=== PATIENT | female | born 1945 | race Caucasian/White ===

== ENCOUNTER → 2023-06-30 08:05 | Outpatient (REF) | payer MEDICARE, OTHER, SELFPAY | LOC: CLAB 08:05 | PROVIDERS: ATTENDING PHYSICIAN Obstetrics & Gynecology | DX: N39.0 Urinary tract infection, site not specified (principal) | CPT/HCPCS: 87086 ==

== ENCOUNTER → 2023-07-11 13:01 | Outpatient (REF) | payer MEDICARE, OTHER, SELFPAY ==
[2023-07-11 13:46] LABS: % Basophils 0.9 % (0-2); % Eosinophils 3.2 % (0-6); % Immature Granulocytes 0.4 % (0-0.5); % Lymphocytes 23.5 % (20.5-51.1); % Monocytes 9.8 % (1.7-9.3); % Neutrophils 62.2 % (42.2-75.2); Absolute Basophils 0.1 10^3/uL (0-0.2); Absolute Eosinophils 0.2 10^3/uL (0-0.7); Absolute Lymphocytes 1.3 10^3/uL (1.2-3.4); Absolute Monocytes 0.6 10^3/uL (0.1-0.6); Absolute Neutrophils 3.5 10^3/uL (1.4-6.5); Hematocrit 40.8 % (37.0-47.0); Hemoglobin 13.8 g/dL (12.0-16.0); Mean Corp Hgb Conc. 33.8 g/dL (33.0-37.0); Mean Corpuscular Hgb 32.2 pg (27.0-31.0); Mean Corpuscular Volume 95.1 fL (81.0-99.0); Mean Platelet Volume 9.5 fL (7.4-10.4); Nucleated Red Blood Cells % 0 %; Platelet Count 250 10^3/uL (130-400); Red Blood Cell Count 4.29 10^6/uL (4.20-5.40); Red Cell Dist. Width 12.7 % (11.5-14.5); White Blood Cell Count 5.6 10^3/uL (4.8-10.8)
[2023-07-11 14:18] LABS: ALT (SGPT) 21 U/L (0-35); AST (SGOT) 24 U/L (14-36); Albumin 4.3 g/dl (3.5-5.0); Alkaline Phosphatase 73 U/L (38-126); Blood Urea Nitrogen 20 mg/dl (7-17); Calcium 9.9 mg/dl (8.4-10.2); Carbon Dioxide 26 mmol/L (22-30); Chloride 104 mmol/L (98-107); Glucose 95 mg/dl (70-99); HDL Cholesterol 66 mg/dl; LDL Cholesterol, Calculated 88 mg/dl; Potassium 4.7 mmol/L (3.5-5.1); Sodium 140 mmol/L (135-145); Total Bilirubin 0.6 mg/dl (0.2-1.3); Total Cholesterol 183 mg/dl (50-199); Total Protein 7.1 g/dl (6.3-8.2); Triglyceride 149 mg/dl (10-149); Very Low Density Lipoprotein 29 mg/dl (0-30); eGFR 56.95
[2023-07-11 14:32] LABS: Urine Albumin Trace (Neg - Trace); Urine Bilirubin Negative (Negative); Urine Character Slightly Cloudy (Clear); Urine Glucose Negative (Negative); Urine Ketone Negative (Negative); Urine Leukocyte Trace (Negative); Urine Nitrite Negative (Negative); Urine Occult Blood Negative (Negative); Urine Urobilinogen Negative (Neg - 1+)
[2023-07-11 14:33] LABS: Urine Color Yellow
[2023-07-11 14:41] LABS: Urine Squamous Cell >30 /LPF (Few)
[2023-07-11 14:42] LABS: Urine Bacteria Few (Negative); Urine Red Blood Cell 0-2 /HPF (0-2); Urine White Cell 0-2 /HPF (0-5)
[2023-07-11 14:48] LABS: TSH 4.98 uIU/ml (0.47-4.68)
== END ==
LOC: REG 13:01
PROVIDERS: ATTENDING PHYSICIAN Internal Medicine
DX: I10 Essential (primary) hypertension (principal); H81.13 Benign paroxysmal vertigo, bilateral; Z86.73 Personal history of transient ischemic attack (TIA), and cerebral infarction without residual deficits; E78.2 Mixed hyperlipidemia; Z86.018 Personal history of other benign neoplasm; F33.41 Major depressive disorder, recurrent, in partial remission; Z12.31 Encounter for screening mammogram for malignant neoplasm of breast; Z00.01 Encounter for general adult medical examination with abnormal findings
CPT/HCPCS: 36415; 80053; 80061; 81003; 81015; 84443; 85025

== ENCOUNTER → 2023-08-22 12:00 | Outpatient (REF) | payer MEDICARE, OTHER, SELFPAY ==
[2023-08-24 02:57] LABS: SSA 52 (Ro)(ENA) Ab, IgG 17 AU/mL (0-40); SSA 60 (Ro)(ENA) Ab, IgG 0 AU/mL (0-40); SSB (La)(ENA) Ab, IgG 0 AU/mL (0-40)
== END ==
LOC: REG 12:00
PROVIDERS: ATTENDING PHYSICIAN Internal Medicine; FAMILY PHYSICIAN Internal Medicine
DX: K11.7 Disturbances of salivary secretion (principal)
CPT/HCPCS: 36415; 86235

== ENCOUNTER → 2023-09-12 09:17 | Outpatient (REF) | payer MEDICARE, OTHER, SELFPAY ==
[2023-09-12 10:57] LABS: Blood Urea Nitrogen 17 mg/dl (7-17); Calcium 9.8 mg/dl (8.4-10.2); Carbon Dioxide 25 mmol/L (22-30); Chloride 99 mmol/L (98-107); Glucose 99 mg/dl (70-99); Potassium 4.2 mmol/L (3.5-5.1); Sodium 134 mmol/L (135-145); eGFR 56.95
[2023-09-12 13:14] LABS: Hematocrit 39.5 % (37.0-47.0); Mean Corp Hgb Conc. 35.4 g/dL (33.0-37.0); Mean Corpuscular Hgb 33.3 pg (27.0-31.0); Mean Corpuscular Volume 93.8 fL (81.0-99.0); Mean Platelet Volume 10.2 fL (7.4-10.4); Platelet Count 233 10^3/uL (130-400); Red Blood Cell Count 4.21 10^6/uL (4.20-5.40); Red Cell Dist. Width 12.5 % (11.5-14.5); White Blood Cell Count 5.4 10^3/uL (4.8-10.8)
== END ==
LOC: SDSPAT 09:17
PROVIDERS: ATTENDING PHYSICIAN Obstetrics & Gynecology; FAMILY PHYSICIAN Internal Medicine
DX: Z01.818 Encounter for other preprocedural examination (principal)
CPT/HCPCS: 36415; 80048; 85027; 86850; 86900; 86901; 93005

== ENCOUNTER 2023-09-19 09:36 | Day surgery (SDC) | payer MEDICARE, OTHER, SELFPAY ==
[2023-09-12 13:51] VITALS: BMI 25.9
[2023-09-19] VITALS (11 sets, daily range): BP systolic 133–159; BP diastolic 55–82; BMI 25.9
[2023-09-19] MEDS: NORMOSOL-R 1000 IV (13:02)
[2023-09-19] MEDS: Pyridium 200 MG PO (13:02)
[2023-09-19] MEDS: HEPARIN 5000 UNITS SC (13:03)
== END 2023-09-19 19:40 | disposition home or self-care (01) ==
LOC: SDS 09:36
PROVIDERS: ATTENDING PHYSICIAN Obstetrics & Gynecology
DX: N99.3 Prolapse of vaginal vault after hysterectomy (principal); N39.3 Stress incontinence (female) (male); N36.41 Hypermobility of urethra; Y83.8 Other surgical procedures as the cause of abnormal reaction of the patient, or of later complication, without mention of misadventure at the time of the procedure
CPT/HCPCS: 57282; 57260; J1580

== ENCOUNTER 2024-01-08 09:59 | Emergency (ER) | payer MEDICARE, OTHER, SELFPAY ==
[2024-01-08 10:02] VITALS: BP 178/75
[2024-01-08 10:14] VITALS: BMI 25.0
[2024-01-08] MEDS: ULTRAM 25 MG PO (11:36)
--- NOTE | 2024-01-08 12:41 | ED.GENMED ---
History of Present Illness
General
Chief Complaint: Swelling
Source: patient and family
Exam Limitations: none
Time Seen by Provider: 01/08/24 10:49
Nursing documentation reviewed up to this point in time: agreed with
History of Present Illness
History of Present Illness:
Patient presents to ED secondary to persistent right knee pain with swelling, when she stood up from sitting on the couch last night. Denies fever. Denies direct trauma. Denies fall from pain. Denies loss of sensation or weakness. Denies
previous history of similar symptoms. Denies recent change in activities. Denies recent travel or surgery. Denies family history or previous history of blood clots. Of note, however, per family, patient has been less active recently.
Past History
Past History
ED Past Medical History: HTN, Hypercholesterolemia and Other (TIA, ischemic colitis)
ED Past Surgical History: Other (Hysterectomy)
Social History
Tobacco: Non-smoker
Alcohol: None
Drug: None
Employment: Retired
Family History
Family History: Other (n/c)
Review of Systems
Review of Systems
Allergies reviewed?: Yes
All Other Systems: ROS reviewed and negative except as documented in HPI and ROS
Constitutional: Reports no symptoms
Musculoskeletal: Reports joint pain and joint swelling
Skin: Reports no symptoms
Neurological: Reports no symptoms; Denies weakness
Phy Exam
Physical Exam
Physical Exam:
Physical Exam
General: mild painful distress, not acutely ill. afebrile
Head: nc/at. eomi
Neck: supple. normal range of motion
Neuro: alert and oriented. no focal neurological deficits
Skin: no rash
Psychiatric: well kept. interactive and cooperative
Extremities: right knee: mild tenderness w minimal swelling noted over right prox fib/medial knee, without ecchymosis/erythema/warmth. No calf tenderness/swelling.
Scores
Heart Failure Risk
Heart Failure Risk Score: Not Applicable
Course
Orders/Labs/Results
Orders:
Orders
01/08/24 10:11
Venous Doppler Lwr Ext Rt [US Periph Venous LOWER Ext RT] Urgent
Comment:
Reason For Exam: swelling/pain, r/o DVT
01/08/24 11:33
Tramadol HCl [Ultram] 25 mg PO NOW STA
01/08/24 11:51
CR Knee- Right 4 Or More View* Urgent
Comment:
Reason For Exam: pain w swelling
Vital Signs
Initial and Last Documented VS:
Initial Vital Signs
Temp Pulse Resp BP Pulse Ox
98.3 F 65 16 178/75 97
01/08/24 10:02 01/08/24 10:02 01/08/24 10:02 01/08/24 10:02 01/08/24 10:02
Last Documented Vital Signs
Temp Pulse Resp BP Pulse Ox
98.3 F 66 16 182/71 97
01/08/24 10:02 01/08/24 12:48 01/08/24 10:02 01/08/24 12:48 01/08/24 10:02
MDM/Problems Addressed
MDM/Problems Addressed:
Ultrasound lower extremity and knee x-ray report reviewed and discussed with patient and family.
History and exam consistent with likely mild right knee strain with associated pain and minimal swelling. Otherwise patient is neurovascularly intact. Patient will be treated conservatively with knee immobilizer along with recommendation to use
walker for safety at home, until reevaluation with her orthopedic surgeon.
*Critical Care Note
Total Time (30-74mins, 75-104mins- exclusive of procedures): Not Applicable
ED Attending Note
-
Portions of this chart may have been created with voice recognition software.� Occasional wrong word or��sound alike� substitutions may have occurred due to the inherent limitations of voice recognition software.
Discharge Plan
Departure
Patient Disposition: Home (Routine Discharge)
Date of Disposition: 01/08/24
Time of Disposition: 12:41
Patient with high blood pressure during this ER visit?: Yes
Condition: Fair
Discharge Problem:
Knee pain
Instructions: Knee Pain ED
Prescriptions:
No Action
bupropion HCl 150 MG tablet sustained-release 12 hr
200 mg PO BID
pravastatin 20 MG tablet
20 mg PO DAILY
meclizine 12.5 MG tablet
12.5 mg PO TIDPRN PRN (Reason: dizziness)
hydrochlorothiazide 12.5 MG tablet
12.5 mg PO DAILY
aspirin 81 MG tablet,chewable
81 mg PO DAILY Qty: 30 0RF
pantoprazole 40 MG tablet,delayed release (DR/EC)
40 mg PO DAILY Qty: 30 0RF
multivitamin Tablet
1 tab PO DAILY
metoprolol succinate 25 mg Tablet Extended Release 24 Hr
25 mg PO DAILY
PreserVision AREDS-2 250-90-40-1 mg Capsule
1 tab PO BID
Referrals:
Sarah Schilling I., [Active] -
Ronald Rhodes MD [Family Provider] -
Activity Restrictions/Additional Instructions:
As discussed, please follow-up with your primary care physician and/or orthopedic surgeon for further evaluation and treatment. In ED, ultrasound and x-ray did not reveal any acute abnormal findings. If your symptoms persist, please consider
obtaining repeat ultrasound and/or MRI knee.
Interventions
Interventions:
*Risk Screen - Suicide Last Done: 01/08/24 10:02
*General Assessment Last Done: 01/08/24 10:15
*Neglect/Abuse Screening Last Done: 01/08/24 10:02
ED- Fall Risk Assessment Last Done: 01/08/24 10:14
*ED COVID-19 Vaccine History Last Done: 01/08/24 10:15
*Nursing Disposition Last Done: 01/08/24 12:48
ED- Cardiac Assessment Last Done: 01/08/24 10:16
ED- Pulmonary Assessment Last Done: 01/08/24 10:16
ED-Skin Assessment Last Done: 01/08/24 10:16
Discharge Date and Time
Discharge Date/Time: 01/08/24 12:49
Print Language: BOLIVIAN
[2024-01-08 12:48] VITALS: BP 182/71
== END 2024-01-08 12:49 | disposition home or self-care (01) ==
LOC: EMR 09:59
PROVIDERS: EMERGENCY PHYSICIAN Emergency Medicine; FAMILY PHYSICIAN Internal Medicine
DX: M25.561 Pain in right knee (principal); I10 Essential (primary) hypertension; E78.00 Pure hypercholesterolemia, unspecified; Z86.73 Personal history of transient ischemic attack (TIA), and cerebral infarction without residual deficits; Z90.710 Acquired absence of both cervix and uterus
CPT/HCPCS: 29505; 99284; 73564; 93971

== ENCOUNTER → 2024-03-13 13:14 | Outpatient (REF) | payer MEDICARE, OTHER, SELFPAY ==
[2024-03-13 15:21] LABS: Free T4 0.99 ng/dl (0.78-2.19)
[2024-03-13 15:35] LABS: TSH 8.42 uIU/ml (0.47-4.68)
== END ==
LOC: REG 13:14
PROVIDERS: ATTENDING PHYSICIAN Internal Medicine
DX: R94.6 Abnormal results of thyroid function studies (principal)
CPT/HCPCS: 36415; 84439; 84443

== ENCOUNTER → 2024-03-31 09:31 | Outpatient (REF) | payer MEDICARE, OTHER, SELFPAY | LOC: WDC 09:31 | PROVIDERS: ATTENDING PHYSICIAN Internal Medicine | DX: Z12.31 Encounter for screening mammogram for malignant neoplasm of breast (principal) | CPT/HCPCS: 77063; 77067 ==

== ENCOUNTER → 2024-06-25 14:25 | Outpatient (REF) | payer MEDICARE, OTHER, SELFPAY ==
[2024-06-25 16:32] LABS: TSH Reflex To Free T4 4.41 uIU/ml (0.47-4.68)
== END ==
LOC: REG 14:25
PROVIDERS: ATTENDING PHYSICIAN Internal Medicine
DX: E03.9 Hypothyroidism, unspecified (principal)
CPT/HCPCS: 36415; 84443

== ENCOUNTER → 2024-12-20 13:47 | Outpatient (REF) | payer MEDICARE, OTHER, SELFPAY ==
[2024-12-20 15:43] LABS: TSH 4.78 uIU/ml (0.47-4.68)
== END ==
LOC: REG 13:47
PROVIDERS: ATTENDING PHYSICIAN Internal Medicine
DX: E03.9 Hypothyroidism, unspecified (principal)
CPT/HCPCS: 36415; 84439; 84443